=== PATIENT | female | born 1965 | race Two or more races ===

== ENCOUNTER 2024-11-07 00:10 | Emergency (ER) | payer MEDICAID, SELFPAY ==
[2024-11-07 00:10] VITALS: BMI 45.7
[2024-11-07 00:50] VITALS: BP 149/85; PULSE 101; RESP 19; TEMP 36.8; O2SAT 95
--- NOTE | 2024-11-07 01:01 | PD.EDRME ---
Rapid Medical Screening Exam RME Arrival date/time: 11/07/24 00:10 Chief Complaint: General Adult/Misc Complain Time Seen by Provider: 11/07/24 00:59 Vital signs: Vital Signs Temperature 98.3 F 11/07/24 00:50 Pulse Rate 101 H 11/07/24 00:50 Respiratory Rate 19 11/07/24 00:50 Blood Pressure 149/85 H 11/07/24 00:50 Pulse Oximetry (%) 95 11/07/24 00:50 Oxygen Delivery Method Room Air 11/07/24 00:50 95% room air is the pulse ox Vital signs reviewed by provider: Yes RME Narrative: Patient who has been battling with gout for a week dropped a bottle described as 1 gallon of juice on her left foot.
--- NOTE | 2024-11-07 01:03 | XR_ITS ---
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
[2024-11-07] MEDS: KETOROLAC INJ 30 MG/ML VIAL IM (01:37)
--- NOTE | 2024-11-07 01:37 | PD.EDADULT ---
ED General RME/HPI General Chief complaint: General Adult/Misc Complain Stated complaint: LEFT FOOT GOUT FLARE UP Time Seen by Provider: 11/07/24 00:59 Source: patient Arrival date/time: 11/07/24 00:10 Mode of arrival: wheelchair Limitations: no limitations RME / HPI RME / HPI narrative: Patient who has been battling with gout for a week dropped a bottle described as 1 gallon of juice on her left foot. MD complaint: 58-year-old female presents with a complaint of a left swollen foot. Onset (ago): day(s) Location: left and lower extremity Severity: severe Severity scale (1-10): 5 Quality: aching Consistency: constant Relieving factors: none Exacerbating factors: movement Treatments prior to arrival: none Related Data Previous Rx's ?Medication ?Instructions ?Recorded albuterol sulfate 90 mcg/actuation 2 inh inhalation Q4H PRN shortness 06/24/23 aerosol inhaler of breath or wheezing #8.5 grams naproxen 500 mg tablet (Naprosyn) 500 mg PO BID PRN pain #20 tabs 01/26/24 amoxicillin 875 mg-potassium 1 tab PO Q12H #14 tabs 03/24/24 clavulanate 125 mg tablet naproxen 500 mg tablet (Naprosyn) 500 mg PO BID #4 tabs 11/07/24 Allergies Allergy/AdvReac Type Severity Reaction Status Date / Time No Known Allergies Allergy Verified 01/26/24 13:59 Review of Systems Constitutional Constitutional: Reports system reviewed and no additional complaints, except as documented Eyes Eyes: Reports system reviewed and no additional complaints, except as documented, Denies dry eyes, Denies exophthalmos and Reports floaters Cardiovascular Cardiovascular: Denies chest pain with activity and Denies claudication ED Exam Narrative Physical exam: Left foot is edematous and tender to palpation distally. Patient retains full range of motion of all digits of her left lower extremity. Neurovascular intact. The foot is edematous and erythematous. There is no lymphangitic streaks present. General Limitations: Present no limitations General appearance: Present alert and in no apparent distress Head Head exam: Present atraumatic Eye Eye exam: Present normal appearance, PERRL and EOMI ENT ENT exam: Present normal exam, normal oropharynx and mucous membranes moist Neck Neck exam: Present normal inspection, full ROM and trachea midline Extremities Exam Extremities exam: Present tenderness (The left foot distally is tender to palpation.), pedal edema and joint swelling Back Exam Back exam: Present normal inspection and full ROM Neurological Exam Neurological exam: Present alert and oriented X3 Psychiatric Psychiatric exam: Present normal affect and normal mood Skin Skin exam: Present warm, dry, intact and erythema Course Course Course Narrative: Patient will have an x-ray of her left foot and she will also have 30 mg of Toradol Quality Measures none Orders Category Date Time Status XR foot comp LT min 3V Stat Exams 11/07/24 01:03 Taken Ketorolac Inj [Toradol Inj] Med 11/07/24 01:15 Discontinued 30 mg IM X1 ONE Vital Signs Vital signs: Vital Signs Temperature 98.3 F 11/07/24 00:50 Pulse Rate 101 H 11/07/24 00:50 Respiratory Rate 19 11/07/24 00:50 Blood Pressure 149/85 H 11/07/24 00:50 Pulse Oximetry (%) 95 11/07/24 00:50 Oxygen Delivery Method Room Air 11/07/24 00:50 Pulse ox is 95% room air Discharge Plan Plan Patient Disposition: HOME (Self Care) Discharge Disposition comment: Discharge in no apparent distress Prescriptions/Referrals Prescriptions/Med Rec: New naproxen [Naprosyn] 500 mg tablet 500 mg PO BID Qty: 4 0RF No Action albuterol sulfate 90 mcg/actuation HFA aerosol inhaler 2 inh inhalation Q4H PRN (Reason: shortness of breath or wheezing) Qty: 8.5 0RF naproxen [Naprosyn] 500 mg tablet 500 mg PO BID PRN (Reason: pain) Qty: 20 0RF amoxicillin-pot clavulanate 875-125 mg tablet 1 tab PO Q12H Qty: 14 0RF Referrals: Temporary Provider,ED [Primary Care Provider] - In 1 week Problem List Clinical Impression: Contusion of foot Impression comment: Contusion of foot Patient/Caregiver Discharge Instructions Discharge Activity: activity as tolerated Education Materials: Bone Contusion, ED Soft Tissue Contusion Print Language: Amharic Stand Alone Forms: Lilliana Award Info., Work/School Release, Patient Portal Info Letter PA/TALENT PROGRAM MANAGER Supervising Physician PA/TALENT PROGRAM MANAGER Supervising Physician: Kati REGALADO Narrative Sign out note: N/A [facility] hospital course: Patient will have 30 mg of Toradol. She will also have a left foot x-ray which Dr. Parikh was able to read is negative for any acute fractures or processes taking place with the left foot. Patient will be discharged in no apparent distress and I will send to the pharmacy of her choice Naprosyn 500 mg to be consumed 1 p.o. q. 12 and there will be #4. Patient is to follow-up primary care physician. Clinical Information Provided by patient Medical Records Reviewed None N/A Meds/Rx Considered, not Ordered None Labs/Rad/Tests considered, not Ordered None Chronic Illness/Social Conditions which may negatively complicate care or outcome(s)-explain: other (Gout) Add or document further as needed: N/A EKG EKG not done Lab Interpretation Lab(s) interpretation(s): No labs or x-rays to interpret Imaging Imaging interpretation: none Provider imaging interpretation(s): No labs or x-rays to interpret Medication Administration(s) none (Toradol) Medication Administration History Discontinued Medications Ketorolac Tromethamine (Ketorolac Inj 30 Mg/Ml Vial) 30 mg IM X1 ONE Stop: 11/07/24 01:16 Done Diagnosis Differential diagnosis: Contusion versus fracture versus gout Differential dx and/or dx ruled out: N/A Most likely dx, and/or detailed dx discussion: N/A Dispositon Disposition: Discharge Home
== END 2024-11-07 01:49 | disposition home or self-care (01) ==
LOC: SERX 02:15
PROVIDERS: Emergency Provider Emergency Medicine
DX: S90.32XA Contusion of left foot, initial encounter (principal); W20.8XXA Other cause of strike by thrown, projected or falling object, initial encounter; M10.9 Gout, unspecified
CPT/HCPCS: 73630; 96372; 99283; J1885

== ENCOUNTER 2025-06-01 14:53 | Emergency (ER) | payer MEDICAID, SELFPAY ==
[2025-06-01 15:06] VITALS: BP 133/80; PULSE 104; RESP 20; TEMP 36.9; O2SAT 97
--- NOTE | 2025-06-01 15:09 | PD.EDALLER ---
ED Allergic Reaction RME/HPI General Chief complaint: General Adult/Misc Complain Stated complaint: STUNG BY WASP Time Seen by Provider: 06/01/25 15:09 Arrival date/time: 06/01/25 14:53 RME / HPI RME / HPI narrative: See [facility] for Dr. Parikh's HPI documentation. Related Data Previous Rx's ?Medication ?Instructions ?Recorded albuterol sulfate 90 mcg/actuation 2 inh inhalation Q4H PRN shortness 06/24/23 aerosol inhaler of breath or wheezing #8.5 grams naproxen 500 mg tablet (Naprosyn) 500 mg PO BID PRN pain #20 tabs 01/26/24 amoxicillin 875 mg-potassium 1 tab PO Q12H #14 tabs 03/24/24 clavulanate 125 mg tablet naproxen 500 mg tablet (Naprosyn) 500 mg PO BID #4 tabs 11/07/24 epinephrine 0.3 mg/0.3 mL 0.3 ml subcut .once PRN 06/01/25 injection, auto-injector (EpiPen) hypersensitivity reaction #2 ea Allergies Allergy/AdvReac Type Severity Reaction Status Date / Time No Known Allergies Allergy Verified 06/01/25 14:55 Review of Systems Review of Systems Systems Reviewed: All systems reviewed, normal except as documented Past Medical History Past Medical History CARDIAC: Positive Angina, Hypercholesterolemia and Hypertension; Negative Cardiac Disorders or Congestive Heart Failure RESPIRATORY: Positive Chronic Obstructive Pulmonary Disease (COPD) and Asthma GENITOURINARY: Positive Renal Disease ENDOCRINE: Negative Diabetes Mellitus Type 1 or Diabetes Mellitus Type 2 HEMATOLOGIC: Negative Sickle Cell Disease Social History SMOKING STATUS: Current every day smoker ED Exam Narrative Physical exam: See [facility] for Dr. Parikh's physical exam documentation. Course Quality Measures none Orders Category Date Time Status Saline [Insert IV] NOW Care 06/01/25 15:10 Completed Albuterol/Ipratr Rt Lacie [Duoneb Rt Lacie] Med 06/01/25 15:10 Discontinued 3 ml INH X1 ONE DiphenhydrAMINE INJ [Benadryl Inj] Med 06/01/25 15:10 Discontinued 50 mg IVP X1 STA Famotidine Inj [Pepcid Inj] Med 06/01/25 15:10 Discontinued 20 mg IVP X1 ONE MethylPREDNISolone.* [SoluMEDROL Inj] Med 06/01/25 15:10 Discontinued 125 mg IVP X1 ONE Metoprolol Tartrate [Lopressor] Med 06/01/25 15:10 Discontinued 25 mg PO X1 ONE Sodium Chloride 0.9% 1000 ml [Ns] 1,000 ml Med 06/01/25 15:10 Discontinued IV 999 mls/hr Vital Signs Vital signs: Vital Signs Temperature 98.4 F 06/01/25 15:06 Pulse Rate 104 H 06/01/25 15:06 Respiratory Rate 20 06/01/25 15:06 Blood Pressure 133/80 H 06/01/25 15:06 Pulse Oximetry (%) 97 06/01/25 15:06 Oxygen Delivery Method Room Air 06/01/25 15:06 Allergic Reaction MDM Narrative MDM Narrative:: This section includes all my notes and documentations, including HPI, PE, and ED course. Kevin Parikh MD HPI: 59-year-old female here after wasp sting in her left leg 30 minutes ago. Gave herself epinephrine due to severe history. Reports chest tightness and throat tightness and shortness of breath. No syncope or near syncope. No nausea or vomiting. No abdominal pain. No other complaints. ROS: All negative except as documented in HPI. Physical Exam: General: Alert and oriented. Appears anxious. High BP noted. Eyes: Conjunctivae and lids clear. ENT: Patent airway. No signs of angioedema. Neck: Supple. Heart: Sinus tachycardia with regular rhythm. Lungs: No respiratory distress. Good air movement. No rhonchi, wheezing, rales. Abdomen: Soft and nontender. Skin: Warm and dry. Neuro: Alert and oriented X 3. At this point, diagnoses include: Allergic reaction Treatment here included: IVF Duoneb Benadryl 50 mg IV Pepcid 20 mg IV Solumedrol 125 mg IV Oral metoprolol 25 mg Critical care Significant improvement noted. Recommended supportive care. Based on my best medical judgment, made decision no further evaluation or treatment indicated at this time. Patient understands and agrees to the discharge instructions customized and printed, see below. Discharge instructions from Dr. Parikh: 1. You were treated today for potentially severe allergic reaction. 2. To help prevent the reaction going into your airways and your throat, take prednisone as prescribed. 3. And take Benadryl 50 mg every 6-8 hours today and tomorrow then as needed. 4. Increase oral fluid and maintain clear urine. If dark or yellow, increase oral fluid. This will help eliminate any allergens in your blood system. 5. EpiPen as needed. 6. See your private doctor on 06/03/25 if not completely better. 7. Seek immediate medical care with worsening, breathing difficulty, or with any concerns. Kevin Parikh MD Patient data External records reviewed:: [facility] previous records (Per chart review, patient was seen here on 11/07/24 for foot contusion.) Clinical information provided by:: patient Social determinants that could affect healthcare access:: none Patient has the following chronic illnesses:: HTN, HLD, asthma How is presenting disease/condition affected by chronic disease/condition?: uneffected by Evaluation data The following diagnostics were reviewed and interpreted by me:: other (specify) (none) Lab and/or radiology exams considered but not ordered:: none Interpretation Summary: none Medications / Prescriptions Medications or Prescriptions considered but not ordered:: none Medication administrations:: Medication Administration History Discontinued Medications Albuterol/Ipratropium (Albuterol/Ipratropium (Duoneb) Rt Lacie 3 Ml Nebu) 3 ml INH X1 ONE Stop: 06/01/25 15:11 Last Admin: 06/01/25 16:07 Dose: 3 ml Documented By: MADHAVI Diphenhydramine HCl (Diphenhydramine Inj 50 Mg/Ml Vial) 50 mg IVP X1 STA Stop: 06/01/25 15:11 Last Admin: 06/01/25 15:35 Dose: 50 mg Documented By: LF Famotidine (Famotidine Inj 10 Mg/Ml Vial 2 Ml) 20 mg IVP X1 ONE Stop: 06/01/25 15:11 Last Admin: 06/01/25 15:33 Dose: 20 mg Documented By: LF Sodium Chloride (Ns) 1,000 mls @ 999 mls/hr IV .Q1H1M ONE Stop: 06/01/25 16:10 Last Infusion: 06/01/25 16:31 Dose: Infused Documented By: Admin: 06/01/25 15:30 Dose: 999 mls/hr Documented By: LF Methylprednisolone Sodium Succinate (Methylprednisolone Sod Succ 62.5 Mg/Ml 2ml Vial) 125 mg IVP X1 ONE Stop: 06/01/25 15:11 Last Admin: 12/21/25 15:31 Dose: 125 mg Documented By: MALI Metoprolol Tartrate (Metoprolol Tartrate 25 Mg Tablet) 25 mg PO X1 ONE Stop: 06/01/25 15:11 Last Admin: 06/01/25 17:01 Dose: Not Given Documented By: TM Non-Admin Reason: Patient Refused Treatment here included: IVF Duoneb Benadryl 50 mg IV Pepcid 20 mg IV Solumedrol 125 mg IV Oral metoprolol 25 mg Consultations Consultation(s) initiated? (list below): No Diagnosis Differential Diagnosis allergic reaction: anaphylaxis, allergic reaction, angioedema and urticaria Most likely diagnosis given after review of the tests above:: Allergic reaction to wasp sting Admission Indicated Admission indicated?: not indicated Explain why admission is indicated or not indicated:: With significant improvement and no condition needing emergent intervention, there was no indication for admission. Admission Request Was there a request for admission?: No Disposition Plan Disposition Plan: Discharge Discharge Attestation Discharge Attestation: The patient and all family members were given an opportunity to ask questions and understood the discharge instructions. Discharge instructions specifically effects, indications for sooner follow up or return to the emergency department, and the expected course of current diagnosis. Patient condition: Stable Discharge Plan Plan Patient Disposition: HOME (Self Care) Prescriptions/Referrals Prescriptions/Med Rec: New epinephrine [EpiPen] 0.3 mg/0.3 mL auto-injector 0.3 ml subcut .once PRN (Reason: hypersensitivity reaction) Qty: 2 0RF No Action naproxen [Naprosyn] 500 mg tablet 500 mg PO BID Qty: 4 0RF albuterol sulfate 90 mcg/actuation HFA aerosol inhaler 2 inh inhalation Q4H PRN (Reason: shortness of breath or wheezing) Qty: 8.5 0RF naproxen [Naprosyn] 500 mg tablet 500 mg PO BID PRN (Reason: pain) Qty: 20 0RF amoxicillin-pot clavulanate 875-125 mg tablet 1 tab PO Q12H Qty: 14 0RF Referrals: No Primary/Family,Physician [Primary Care Provider] - In 1 week Problem List Clinical Impression: Allergic reaction Patient/Caregiver Discharge Instructions Discharge Activity: activity as tolerated Education Materials: ED BEE STING General Allergic Rxn Additional Instructions: Discharge instructions from Dr. Kati: 1. You were treated today for potentially severe allergic reaction. 2. To help prevent the reaction going into your airways and your throat, take prednisone as prescribed. 3. And take Benadryl 50 mg every 6-8 hours today and tomorrow then as needed. 4. Increase oral fluid and maintain clear urine.? If dark or yellow, increase oral fluid.? This will help eliminate any allergens in your blood system. 5. EpiPen as needed. 6. See your private doctor on 06/03/25 if not completely better. 7. Seek immediate medical care with worsening, breathing difficulty, or with any concerns. Print Language: Kyrgyz Stand Alone Forms: Lilliana Award Info., Patient Portal Info Letter
[2025-06-01] MEDS: SODIUM CHLORIDE 0.9% 1000 ML 1,000 ML 999 ML IV (15:30)
[2025-06-01] MEDS: MethylPREDNISolone SOD SUCC 62.5 MG/ML 2ML VIAL 125 MG IVP (15:31)
[2025-06-01] MEDS: FAMOTIDINE INJ 10 MG/ML VIAL 2 ML 20 MG IVP (15:33)
[2025-06-01 15:56] VITALS: BP 122/77; PULSE 96; RESP 20; TEMP 36.6; O2SAT 97
[2025-06-01 16:07] VITALS: PULSE 92; RESP 18; O2SAT 97
[2025-06-01] MEDS: ALBUTEROL/IPRATROPIUM (Duoneb) RT SOL 3 ML NEBU INH (16:07)
== END 2025-06-01 17:46 | disposition home or self-care (01) ==
PROVIDERS: Emergency Provider Emergency Medicine
DX: T63.461A Toxic effect of venom of wasps, accidental (unintentional), initial encounter (principal); R06.02 Shortness of breath; R07.89 Other chest pain
CPT/HCPCS: 94640; 96361; 96374; 96375; 99283; A9270; J1200; J2919; J3490; J7030